=== PATIENT | male | born 1990 | race African-American/Black ===

== ENCOUNTER 2021-09-26 06:48 | Emergency (ER) | payer MEDICAID, SELFPAY ==
[2021-09-26 06:53] VITALS: BP 146/85; PULSE 72; RESP 18; TEMP 36.2; O2SAT 99
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
[2021-09-26 07:55] VITALS: BP 141/68; PULSE 68; RESP 14; TEMP 36.6; O2SAT 100
== END 2021-09-26 07:56 | disposition home or self-care (01) ==
PROVIDERS: Emergency Provider Emergency Medicine
DX: S05.02XA Injury of conjunctiva and corneal abrasion without foreign body, left eye, initial encounter (principal); W22.8XXA Striking against or struck by other objects, initial encounter
CPT/HCPCS: 99283; A9270